=== PATIENT | female | born 1975 ===

== ENCOUNTER 2018-02-04 21:26 | Emergency (ER) | payer MEDICAID ==
[2018-02-04 21:30] VITALS: O2SAT 100
--- NOTE | 2018-02-04 21:34 | ED PDOC ---
Lower Extremity Pain/Injury Time Seen by Provider: 02/04/18 21:29 Chief Complaint (Nursing): Lower Extremity Problem/Injury Chief Complaint (Provider): Ankle Pain History Per: Patient History/Exam Limitations: no limitations Onset/Duration Of Symptoms: Mins Severity: None Additional Complaint(s): 43 year old female with a past medical history of fractures to bilateral feet presents to the emergency department with swelling to the right ankle. Patient reports that she tripped causing injury to the ankle. She also notes some swelling to the ankle. PMD: Jared Cramer - Ankle/Foot Description Of Injury: Twisted Past Medical History Reviewed: Historical Data, Nursing Documentation, Vital Signs Vital Signs: Last Vital Signs Temp 98.0 F 02/04/18 21:27 Pulse 73 02/04/18 21:27 Resp 16 02/04/18 21:27 BP 121/68 02/04/18 21:27 Pulse Ox 100 02/04/18 21:27 - Medical History PMH: No Chronic Diseases - Surgical History Surgical History: No Surg Hx - Family History Family History: States: Unknown Family Hx - Home Medications Home Medications: Ambulatory Orders Medication Instructions Recorded Naproxen 375 mg PO Q8 PRN #21 tablet 02/04/18 - Allergies Allergies/Adverse Reactions: Allergies Allergy/AdvReac Type Severity Reaction Status Date / Time No Known Allergies Allergy Verified 02/04/18 21:27 Review of Systems Musculoskeletal: Positive for: Other (right ankle swelling) Physical Exam - Reviewed Nursing Documentation Reviewed: Yes Vital Signs Reviewed: Yes - Physical Exam Appears: Positive for: Non-toxic, No Acute Distress Skin: Positive for: Normal Color, Warm, Dry. Negative for: Rash Extremity: Positive for: Tenderness (tender anterior ankle ), Swelling (mild right ankle swelling), Other (non-tender lateral and medial malleolus ). Negative for: Deformity Neurologic/Psych: Positive for: Alert, Oriented - ECG O2 Sat by Pulse Oximetry: 100 (RA) Pulse Ox Interpretation: Normal - Progress ED Course And Treament: ANKLE XRY: NO FX PLACED IN AIR CAST AND GIVEN CRUTCH INSTRUCTIONS. Medical Decision Making Medical Decision Makin Initial impression 43 year old female presenting with right ankle swelling Initial plan: * RAD right ankle * reevaluation Patient declined pain medication Documented by Siria Fox acting as a scribe for Promise Garcia PA-C. All medical record entries made by the Scribe were at my direction and personally dictated by me. I have reviewed the chart and agree that the record accurately reflects my personal performance of the history, physical exam, medical decision making, and the department course for this patient. I have also personally directed, reviewed, and agree with the discharge instructions and disposition. Disposition - Clinical Impression Clinical Impression: Ankle sprain - Patient ED Disposition Is Patient to be Admitted: No - Disposition Referrals: Podiatry Clinic [Outside] Disposition: Routine/Home Disposition Time: 22:01 Condition: FAIR Prescriptions: Naproxen 375 mg PO Q8 PRN #21 tablet PRN Reason: Pain, Moderate (4-7) Instructions: Ankle Sprain (DC) Forms: [facility] ED School/Work Excuse
[2018-02-04 22:52] VITALS: BP 122/78; PULSE 72; RESP 18; TEMP 98
--- NOTE | 2018-02-05 08:10 | RAD ---
PROCEDURE: Right ankle Radiographs. HISTORY: right ankle injury COMPARISON: None. FINDINGS: BONES: Normal. No fracture. JOINTS: Normal. No dislocation. SOFT TISSUES: Normal. OTHER FINDINGS: None. IMPRESSION: No fracture.
== END 2018-02-04 22:52 | disposition home or self-care (01) ==
LOC: H.ER 21:26
DX: S93.402A Sprain of unspecified ligament of left ankle, initial encounter (principal); W19.XXXA Unspecified fall, initial encounter; Y92.89 Other specified places as the place of occurrence of the external cause